=== PATIENT | male | born 2000 | race Caucasian/White ===

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

== ENCOUNTER 2021-12-22 17:35 | Emergency (ER) | payer BC, MEDICAID ==
[~2021-12-22] VITALS: Ht 170.2 cm; Wt 77.3 kg
[~2021-12-22 17:35] MED LIST changes: -RISP1TAB3 PO; +RISP1TAB98 PO; -RISP2TAB3 PO; +RISP2TAB85 PO; -cefazolin/dext.iso 2gm/50ml 50 ML IV ONE; -famotidine 20mg tablet PO ONE; -ringers solution, lacted 1,000 ML IV SCH
[2021-12-22 17:39] VITALS: BP 104/69
--- NOTE | 2021-12-22 18:09 | NUR ---
Patient not placed on a 5150 hold. Patient is not considered gravely disabled, is not SI/HI. Per Dorinda LEAL, patient is ammendable to go back to home. Spoke with [place] the administration who stated that he would be willing to take patient back as long as he is willing to come home. Officer Thomas from [facility], stated that he could take patient back to jail in [place].
== END 2021-12-22 18:17 | disposition home or self-care (01) ==
LOC: ER 17:35
DX: Z13.89 Encounter for screening for other disorder (principal); Z20.822 Contact with and (suspected) exposure to COVID-19; Q86.0 Fetal alcohol syndrome (dysmorphic); R62.50 Unspecified lack of expected normal physiological development in childhood; R45.1 Restlessness and agitation; F41.9 Anxiety disorder, unspecified; Z79.899 Other long term (current) drug therapy
CPT/HCPCS: 87811; 99283

== ENCOUNTER 2022-01-04 11:03 | Emergency (ER) | payer MEDICAID ==
[~2022-01-04] VITALS: Ht 172.7 cm; Wt 7.3 kg
[2022-01-04 13:35] VITALS: BP 101/70
== END 2022-01-04 13:44 | disposition home or self-care (01) ==
LOC: ER 11:03
DX: R07.9 Chest pain, unspecified (principal); F41.9 Anxiety disorder, unspecified; Z79.899 Other long term (current) drug therapy
CPT/HCPCS: 99284

== ENCOUNTER 2022-01-06 20:24 | Emergency (ER) | payer MEDICAID ==
[~2022-01-06] VITALS: Ht 170.2 cm; Wt 77.2 kg
[2022-01-06 20:27] VITALS: BP 107/69
== END 2022-01-06 21:29 | disposition home or self-care (01) ==
LOC: ER 20:24
DX: S91.201A Unspecified open wound of right great toe with damage to nail, initial encounter (principal); S00.511A Abrasion of lip, initial encounter; F41.9 Anxiety disorder, unspecified; Z79.899 Other long term (current) drug therapy; W22.8XXA Striking against or struck by other objects, initial encounter; Y93.89 Activity, other specified; Y92.89 Other specified places as the place of occurrence of the external cause; Y99.8 Other external cause status
CPT/HCPCS: 73630; 99283

== ENCOUNTER 2022-12-18 15:49 | Emergency (ER) | payer MEDICAID ==
[~2022-12-18] VITALS: Ht 172.7 cm; Wt 148.0 kg
[2022-12-18 15:52] VITALS: BP 120/84; PULSE 55; RESP 16; TEMP 96; O2SAT 100
[2022-12-18 16:45] LABS: BILIRUBIN,URINE NEGATIVE (Neg); COLOR,URINE YELLOW (Yellow); GLUCOSE, URINE NEGATIVE (Neg); KETONES,URINE TRACE mg/dl (Neg); LEUKOCYTE ESTERASE ,URINE NEGATIVE (Neg); NITRITES, URINE NEGATIVE (Neg); OCCULT BLOOD,URINE NEGATIVE (Neg); PROTEIN,URINE NEGATIVE (Neg); UROBILINOGEN,URINE 0.2 E.U/dL (0.2-1.0)
--- NOTE | 2022-12-18 16:50 | NUR ---
CAREGIVER AT BEDSIDE.
[2022-12-18 16:56] LABS: CLARITY,URINE SLIGHTLY CLOUDY (Clear); UA COLLECTION TYPE CLN CATCH MIDSTREAM
[2022-12-18 17:00] LABS: AMORPHOUS PHOSPHATES 1+; BACTERIA,URINE NONE SEEN /HPF (Neg); RBC,URINE NONE SEEN /HPF (0-2); SQUAMOUS EPITHELIAL CELL,UR FEW /LPF (FEW); WBC,URINE 0-4 /HPF (0-4)
== END 2022-12-18 19:36 | disposition home or self-care (01) ==
LOC: ER 15:50
DX: N36.8 Other specified disorders of urethra (principal); R62.50 Unspecified lack of expected normal physiological development in childhood; Z79.899 Other long term (current) drug therapy
CPT/HCPCS: 81001; 99283